=== PATIENT | male | born 1975 | race Caucasian/White ===

== ENCOUNTER 2018-07-06 10:34 | Emergency (ER) | payer MEDICAID ==
[~2018-07-06] VITALS: Wt 80.0 kg
--- NOTE | 2018-07-06 15:03 | ERD ---
ER Documentation Chief Complaint Chief Complaint OFF INSULIN X MOS, THIRSTY, FRECUENT URINATION HPI 42-year-old male with a history of type 1 diabetes for the past 15 years presenting for refill on his insulin. Since the patient lost his old job, he lost his insurance and was unable to get any additional insulin. He states that over 1 month he has been off of his insulin. He does complain of polyuria and polydipsia. He also complains of occasional night sweats. denies any Nausea, vomiting, abdominal pain, shortness of breath, fever or chills. ROS All systems reviewed and are negative except as per history of present illness. Medications Home Meds Active Scripts Lancets/Blood Glucose Strips (Fora [id number] [place]-Str) 1 Each Combo..pkg, PKG , #1 Prov:MARK LEBRON MD 07/06/18 Blood-Glucose Meter (Blood Glucose Meter) 1 Each Each, EACH , #1 Prov:MARK LEBRON MD 07/06/18 Insulin Isophan/Regular (Humulin 70/30) 100 Units/Ml Susp, 20 UNIT SC AC BREAKFAST BEDTIME for 30 Days, EA 0 Refills Prov:MARK LEBRON MD 07/06/18 Allergies Allergies: Coded Allergies: No Known Allergy (Unverified , 07/06/18) PMhx/Soc History of Surgery: No Hx Miscellaneous Medical Probl: Yes (Type 1 diabetes) Hx Alcohol Use: No Hx Substance Use: No Hx Tobacco Use: No FmHx Family History: No diabetes Physical Exam Vitals Vital Signs Date Temp Pulse Resp B/P (MAP) Pulse Ox O2 O2 Flow FiO2 Time Delivery Rate 07/06/18 90 20 118/69 99 Room Air 17:27 (85) 07/06/18 79 18 124/99 99 Room Air 15:00 (107) 07/06/18 97.8 90 18 153/79 99 10:44 (103) Physical Exam Const: No acute distress Head: Atraumatic Eyes: Normal Conjunctiva ENT: Normal External Ears, Nose and Mouth. Neck: Full range of motion. No meningismus. Resp: Clear to auscultation bilaterally Cardio: Regular rate and rhythm, no murmurs Abd: Soft, non tender, non distended. Normal bowel sounds Skin: No petechiae or rashes Back: No midline or flank tenderness Ext: No cyanosis, or edema Neur: Awake and alert Psych: Normal Mood and Affect Result Diagram: 07/06/18 1508 07/06/18 1508 Results 24 hrs Laboratory Tests Test 07/06/18 15:01 07/06/18 15:08 07/06/18 15:56 07/06/18 17:07 Bedside Glucose 324 mg/dL 432 mg/dL White Blood Count 10.4 10^3/ul Red Blood Count 5.75 10^6/ul Hemoglobin 15.9 g/dl Hematocrit 45.5 % Mean Corpuscular 79.1 fl Volume Mean Corpuscular 27.7 pg Hemoglobin Mean Corpuscular 34.9 g/dl Hemoglobin Concent Red Cell 11.9 % Distribution Width Platelet Count 243 10^3/UL Mean Platelet 9.7 fl Volume Immature 0.200 % Granulocytes % Neutrophils % 67.0 % Lymphocytes % 25.9 % Monocytes % 4.7 % Eosinophils % 1.1 % Basophils % 1.1 % Nucleated Red Blood 0.0 /100WBC Cells % Immature 0.020 10^3/ul Granulocytes # Neutrophils # 7.0 10^3/ul Lymphocytes # 2.7 10^3/ul Monocytes # 0.5 10^3/ul Eosinophils # 0.1 10^3/ul Basophils # 0.1 10^3/ul Nucleated Red Blood 0.0 10^3/ul Cells # Sodium Level 137 mmol/L Potassium Level 4.0 mmol/L Chloride Level 101 mmol/L Carbon Dioxide 23 mmol/L Level Anion Gap 13 Blood Urea Nitrogen 16 mg/dl Creatinine 0.68 mg/dl Est Glomerular > 60 mL/min Filtrat Rate mL/min Glucose Level 334 mg/dl Calcium Level 10.0 mg/dl Urine Color YELLOW Urine Clarity CLEAR Urine pH 5.0 Urine Specific 1.035 [place] Urine Ketones 1+ mg/dL Urine Nitrite NEGATIVE mg/dL Urine Bilirubin NEGATIVE mg/dL Urine Urobilinogen NEGATIVE mg/dL Urine Leukocyte NEGATIVE Amber/ul Esterase Urine Hemoglobin NEGATIVE mg/dL Urine Glucose 3+ mg/dL Urine Total Protein NEGATIVE mg/dl Current Medications Medications Dose Sig/Lonnie Start Time Status Last (Trade) Ordered Route PRN Stop Time Admin Dose Reason Admin Sodium 1,000 ml @ Q1H STAT 4/2/19 DC 07/06/18 Chloride 1,000 mls/hr IV 16:25 07/06/18 16:40 17:24 Insulin 5 unit ONCE ONCE 07/06/18 DC 07/06/18 Aspart SC 16:30 07/06/18 17:13 (Novolog 16:31 Insulin Pen) Procedures/MDM EMERGENT LABS AND DIAGNOSTIC STUDIES: Lab Results above were reviewed and interpreted by me. CBC: no anemia or evidence of infection BMP: Hyperglycemic. No evidence of electrolyte abnormality, renal failure, or acidosis UA: High specific gravity, 1+ ketones. No evidence of infection Initial Nursing notes reviewed. Previous Medical Records requested via the Electronic Health Record. EMERGENCY DEPARTMENT COURSE / MEDICAL DECISION MAKING: Patient is presenting with hyperglycemia without evidence of diabetic ketoacidosis. He was hyperglycemic for which he was given IV fluids and subcutaneous insulin. Discussed with the patient the importance of outpatient follow-up and continuation of his insulin regimen. I wrote him a prescription for his previous dose of insulin. He was provided with a list of outpatient clinics. Patient's blood pressure was elevated (>120/80) but appears stable without evidence of hypertensive emergency or urgency. The patient was counseled about the risks of hypertension and urged to pursue outpatient monitoring and therapy within a week with their primary care physician. Departure Diagnosis: Primary Impression: Hyperglycemia due to type 1 diabetes mellitus Condition: Stable MARK LEBRON MD Jul 06, 2018 15:03
[2018-07-06] MEDS ORDERED: NOVO7030 SC ×2 (16:21→16:42)
[2018-07-06] MEDS ORDERED: SOD CHLORIDE 0.9% 1,000 ML IV STA (16:25)
[2018-07-06] MEDS ORDERED: INSULIN ASPART [NOVOLOG] 3 ML PEN SC ONE (16:30)
[2018-07-06] MEDS ORDERED: LANC1COM MC (16:44)
[2018-07-06] MEDS ORDERED: BLOO1EAC85 MC (16:44)
[2018-07-06 17:27] VITALS: BP 118/69; PULSE 90; RESP 20
== END 2018-07-06 17:32 | disposition home or self-care (01) ==
LOC: E/R 10:34
DX: E10.65 Type 1 diabetes mellitus with hyperglycemia (principal); Z79.4 Long term (current) use of insulin
CPT/HCPCS: 36415; 80048; 81003; 82962; 85025; 96372; J1815; J7030; Z7502